=== PATIENT | female | born 1950 | race Caucasian/White ===

== ENCOUNTER → 2018-06-02 | Day surgery (SDC) | payer MEDICARE ==
[2018-05-28 08:52] LABS: BASOPHILS % 0.2 % (0.0-1.0); EOSINOPHILS # (AUTO) 0.1 (0.0-0.4); EOSINOPHILS % 1.3 % (0.0-6.0); HEMATOCRIT 38.8 % (34.2-44.1); HEMOGLOBIN 13.4 g/dL (12.0-16.0); LYMPHOCYTES % 28.5 % (18.0-39.1); MEAN CORPUSCULAR HEMOGLOBIN 28.4 pg (28-32); MEAN CORPUSCULAR HGB CONC 34.5 g/dL (31-35); MEAN CORPUSCULAR VOLUME 82.2 fL (81-99); MONOCYTES # (AUTO) 0.6 (0.2-0.8); MONOCYTES % 5.5 % (4.4-11.3); NEUTROPHILS # (AUTO) 6.7 (2.1-6.9); NEUTROPHILS % 64.2 % (38.7-80.0); PLATELET COUNT 226 x10e3/uL (140-360); RED BLOOD COUNT 4.72 x10e6/uL (3.6-5.1); RED CELL DISTRIBUTION WIDTH 13.5 % (11.7-14.4)
[~2018-06-02] MED LIST: ALPRAZOLAM0.5 MG PO; ARTHROTEC PO; ATENOLOL-CHLOR1 EAC1 PO; FENTANYL CITRATE/PF 100MCG/2 ML INJ ONE; FISH OIL PO; HYDROCODON-ACE1 EAC8 PO; HYOSCYAMINE SULFATE 0.5 MG/ML INJ ONE; LEVAQUIN500 MG PO; LOVASTATIN40 MG PO; METFORMIN HCL500 MG PO; MIDAZOLAM HCL 2 MG/2 ML VIAL ONE; NORCO 5-325 TA1 EACH PO; OMEPRAZOLE40 MG PO; PANTOPRAZOLE SO40 MG PO; PROMETHAZINE HC25 M1 PO; PROPOFOL IV EMULSION 10 MG/ML 50 ML VIAL ONE; SYNTHROID100 MCG PO; VITAMIN B COMP1 EAC1 PO; ZANTAC150 MG PO; [UNRECOGNIZED DRUG - OTHER] PO
[2018-06-02 13:55] VITALS: BP 145/90
[2018-06-02 15:05] LABS: WBC,FECAL (FECAL LACTOFERRIN) NEGATIVE (NEGATIVE)
[2018-06-02 15:13] LABS: C DIFFICILE TOXIN A&B AMP PROB NEGATIVE (NEGATIVE)
--- NOTE | 2018-06-02 15:13 | Operative Report ---
DATE OF PROCEDURE: June 02, 2018 REFERRING PHYSICIAN: Dr. Dalton Shetty PROCEDURES PERFORMED 1. Esophagogastroduodenoscopy with biopsies. 2. Colonoscopy with polypectomy. INDICATIONS FOR EGD: Dyspepsia and early satiety. INDICATIONS FOR COLONOSCOPY: Surveillance colonoscopy, personal history of colon polyps and diarrhea. MEDICATION: Patient was done under MAC. Please see anesthesiologist's note. PROCEDURE: With the patient in the left lateral decubitus position, the flexible fiberoptic Olympus gastroscope was introduced into the esophagus under direct visualization without any difficulty. There was some patchy erythema noted in the distal esophagus. Focal nodularity was noted at the GE junction that was biopsied. The scope was then advanced with ease into the stomach. Mucosa overlying the antrum and the body revealed some patchy erythema and moderate edema, and biopsies were obtained and sent to stain for H. pylori. Pylorus appeared to be of normal contour and shape. It was intubated with ease. The scope was advanced all the way to the 2nd portion of the duodenum. The scope was then withdrawn slowly and biopsies were obtained from the proximal 2nd portion and the duodenal bulb 2 rule out sprue. The scope was then withdrawn back into the stomach and retroflexed. The mucosa overlying the fundus and the cardia appeared to be within normal limits. The scope was then straightened out. The stomach was decompressed. The scope was subsequently withdrawn. Patient tolerated the procedure well. IMPRESSION 1. Distal esophagitis, mild. 2. Focal nodularity, gastroesophageal junction, biopsied. 3. Gastritis, biopsied. Biopsies sent to stain for Helicobacter pylori. 4. Rule out sprue. PLAN: Follow up histology. Increase Protonix to 40 mg 1 p.o. a.c. b.i.d. Patient was then turned around. After adequate lubrication of the anal canal, a flexible fiberoptic Olympus colonoscope was inserted into the rectum with ease and advanced all the way to the cecum. Mucosa overlying the cecum appeared to be within normal limits. One polyp was snared and 1 polyp was hot biopsied from the ascending colon. Two polyps were hot biopsied. One polyp was snared from the transverse colon. Two polyps were snared and 1 polyp was hot biopsied from the descending colon. Diverticular disease was noted to involve the distal descending and the sigmoid colon. Two polyps were snared from the sigmoid colon. One polyp was hot biopsied from the rectum. The scope was then retroflexed into the distal rectum and small internal hemorrhoids were noted, none of which is actively bleeding. The scope was then straightened out. It was subsequently withdrawn after securing an adequate stool specimen that was sent for the appropriate stool studies. Patient tolerated the procedure well. External hemorrhoids were also noted on the way out. IMPRESSION 1. Ascending colon polyps times 2, one snared and one hot biopsied. 2. Transverse colon polyps, times 3, 2 hot biopsied and 1 snared. 3. Descending colon polyp times 3, 2 snared and 1 hot biopsied. 4. Diverticulosis. 5. Sigmoid colon polyps times 2, snared. 6. Rectal polyp times 1, hot biopsied. 7. Internal hemorrhoids, none actively bleeding. PLAN: Follow up histology. Follow up stool studies. Start Bentyl 10 mg 1 p.o. t.i.d. VSL #3 one p.o. daily. Patient might benefit from a followup colonoscopy in 1 year considering the number of polyps and the size of the polyps removed. Job#: [id number] MA cc:DALTON SHETTY M.D.
== END | disposition home or self-care (01) ==
LOC: ENDO 09:14
PROVIDERS: ATTEND Internal Medicine Gastroenterology
DX: Z12.11 Encounter for screening for malignant neoplasm of colon (principal); D12.4 Benign neoplasm of descending colon; D12.3 Benign neoplasm of transverse colon; D12.2 Benign neoplasm of ascending colon; D12.5 Benign neoplasm of sigmoid colon; K62.1 Rectal polyp; K29.70 Gastritis, unspecified, without bleeding; K21.0 Gastro-esophageal reflux disease with esophagitis; K22.70 Barrett's esophagus without dysplasia; K57.30 Diverticulosis of large intestine without perforation or abscess without bleeding; K64.8 Other hemorrhoids; I10 Essential (primary) hypertension; E11.9 Type 2 diabetes mellitus without complications; Z88.1 Allergy status to other antibiotic agents; Z88.3 Allergy status to other anti-infective agents; Z88.0 Allergy status to penicillin; Z88.8 Allergy status to other drugs, medicaments and biological substances; Z01.810 Encounter for preprocedural cardiovascular examination; Z01.812 Encounter for preprocedural laboratory examination; Z79.84 Long term (current) use of oral hypoglycemic drugs; Z68.31 Body mass index [BMI] 31.0-31.9, adult; Z80.0 Family history of malignant neoplasm of digestive organs
CPT/HCPCS: 36415 ×2; 43239; 45384; 45385; 82948; 83630; 83993; 85025; 87045; 87177; 87328; 87493; 88305; 88312; 93005; J1980; J2250; 45378

== ENCOUNTER → 2019-03-23 | Outpatient (CLI) | payer MEDICARE ==
[~2019-03-23] MED LIST changes: -FENTANYL CITRATE/PF 100MCG/2 ML INJ ONE; -HYOSCYAMINE SULFATE 0.5 MG/ML INJ ONE; -MIDAZOLAM HCL 2 MG/2 ML VIAL ONE; -PROPOFOL IV EMULSION 10 MG/ML 50 ML VIAL ONE; +XANAX0.5 MG PO; +[UNRECOGNIZED DRUG - OTHER] PO
--- NOTE | 2019-03-23 12:57 | Diagnostic Imaging Report ---
TECHNIQUE: Magnetic resonance imaging of the RIGHT KNEE was performed WITHOUT injected contrast. HISTORY: Right knee pain COMPARISON: None available. FINDINGS: LIGAMENTS AND TENDONS: ACL: Intact PCL: Intact Collateral ligaments: Intact Iliotibial band: Unremarkable Popliteal tendon: Intact Extensor mechanism: Intact JOINT: Menisci: Medial: Degenerative signal without tear. Lateral: Complex predominantly horizontal tearing involving the body and posterior horn. Articular Cartilage: Medial Compartment: Partial-thickness cartilage loss Lateral Compartment: Partial-thickness cartilage loss with areas of full-thickness erosion and subchondral edema. Patellofemoral Compartment: Partial-thickness cartilage loss with areas of full-thickness erosion at the patellar apex. Joint Fluid: Small joint effusion. BONE: Subchondral edema in the lateral compartment. SOFT TISSUES: Otherwise, unremarkable. IMPRESSION: Lateral meniscus complex horizontal tearing with regions of full-thickness cartilage loss and subchondral edema. Patellofemoral compartment cartilage damage with full-thickness erosion at the patellar apex. Signed by: Dr. Flynn Ramirez M.D. on 03/23/2019 12:54 PM
== END ==
LOC: MRI 09:45
PROVIDERS: ATTEND Specialist
DX: M25.561 Pain in right knee (principal)

== ENCOUNTER → 2019-03-30 | Day surgery (SDC) | payer MEDICARE ==
[2019-03-27 10:23] LABS: BASOPHILS % 0.2 % (0.0-1.0); EOSINOPHILS # (AUTO) 0.2 (0.0-0.4); EOSINOPHILS % 1.8 % (0.0-6.0); HEMATOCRIT 40.4 % (34.2-44.1); HEMOGLOBIN 13.3 g/dL (12.0-16.0); LYMPHOCYTES # (AUTO) 3.3 (1.0-3.2); LYMPHOCYTES % 34.5 % (18.0-39.1); MEAN CORPUSCULAR HEMOGLOBIN 27.2 pg (28-32); MEAN CORPUSCULAR HGB CONC 32.9 g/dL (31-35); MEAN CORPUSCULAR VOLUME 82.6 fL (81-99); MONOCYTES # (AUTO) 0.5 (0.2-0.8); MONOCYTES % 5.5 % (4.4-11.3); NEUTROPHILS # (AUTO) 5.5 (2.1-6.9); NEUTROPHILS % 57.6 % (38.7-80.0); PLATELET COUNT 226 x10e3/uL (140-360); RED BLOOD COUNT 4.89 x10e6/uL (3.6-5.1); RED CELL DISTRIBUTION WIDTH 14.2 % (11.7-14.4)
[2019-03-27 10:47] LABS: ANION GAP 13.7 mmol/L (8-16); BLOOD UREA NITROGEN 12 mg/dL (7-26); BUN/CREATININE RATIO 16 (6-25); CARBON DIOXIDE 31 mmol/L (22-29); CHLORIDE 95 mmol/L (98-107); CREATININE, SERUM 0.77 mg/dL (0.57-1.11); EST GLOMERULAR FILTRATION RATE > 60 ML/MIN (60-); GLUCOSE 134 mg/dL (74-118); POTASSIUM 3.7 mmol/L (3.5-5.1); SODIUM 136 mmol/L (136-145)
--- NOTE | 2019-03-27 10:56 | Diagnostic Imaging Report ---
Chest, PA and lateral. History: Preoperative evaluation. Left knee surgery. Comparison: None available. Discussion: The cardiomediastinal silhouette and pulmonary vasculature are within normal limits. The lungs are clear without evidence of consolidation or effusion. There are no acute osseous abnormalities. The soft tissues are unremarkable. IMPRESSION: No radiographic evidence of acute cardiopulmonary abnormality. Signed by: Krzysztof Quezada MD on 03/27/2019 10:53 AM
[~2019-03-30] MED LIST changes: +CLINDAMYCIN 600MG / 50ML 50 ML IV ONE; +DEXAMETHASONE SOD PHOS INJ 4 MG/ML VIAL ONE; +FENTANYL CITRATE/PF 100MCG/2 ML INJ ONE; +LIDOCAINE HCL 2% JELLY 5 ML TUBE ONE; +MIDAZOLAM HCL 2 MG/2 ML VIAL ONE; +PROMETHAZINE HCL (IM) 25 MG/ML VIAL ONE; +PROPOFOL IV EMULSION 10 MG/ML 20 ML VIAL ONE; +SEVOFLURANE INHAL SOLN 250 ML PEN BTL ONE
--- OUTSIDE RECORDS SUMMARY | 2019-03-30 05:16 | XMS REPORT ---
Author Author [facility] Address Unknown Phone Unavailable Care Team Providers Care Board Filler Name Role Phone KEVIN ROBERTS Unavailable Unavailable Problems This patient has no known problems. Allergies, Adverse Reactions, Alerts This patient has no known allergies or adverse reactions. Medications This patient has no known medications. Results Test Description Test Time Test Comments Text Results Atomic Results Result Comments CHEST 2 VIEWS 2019-03-27 10:52:00 [facility] [address] [address] Patient Name: CARL DILLARD MR #: [id number] : 1950 Age/Sex: 68/F Req #: [id number] [facility] Physician: Ordered by: KEVIN ROBERTS MD Report #: [id number] Location: OR Room/Bed: Procedure: [id number] DX/CHEST 2 VIEWS Exam Date: 03/27/19 Exam Time: 0950 REPORT STATUS: Signed Chest, PA and lateral. History: Preoperative evaluation. Left knee surgery. Comparison: None available. Discussion: The cardiomediastinal silhouette and pulmonary vasculature are within normal limits. The lungs are clear without evidence of consolidation or effusion. There are no acute osseous abnormalities. The soft tissues are unremarkable. IMPRESSION: No radiographic evidence of acute cardiopulmonary abnormality. Signed by: Krzysztof Isabel MD on 03/27/2019 10:53 AM Dictated By: KRZYSZTOF ISABEL MD 1053 Transcribed By: MIGNON on 03/27/191052 COPY TO: KEVIN ROBERTS MD MRI RIGHT KNEE WO 2019-03-23 12:45:00 [address] [place] [address] Patient Name: CARL DILLARD MR #: [id number] : 1950 Age/Sex: 68/F Req #: [id number] Adm Physician: Ordered by: KEVIN ROBERTS MD Report #: [id number] Location: MRI Room/Bed: Procedure: [id number] MRI/MRI RIGHT KNEE WO Exam Date: Exam Time: REPORT STATUS: Signed TECHNIQUE: Magnetic resonance imaging of the RIGHT KNEE was perfor med WITHOUT injected contrast. HISTORY: Right knee pain COMPARISON: None available. FINDINGS: LIGAMENTS AND TENDONS: ACL: Intact PCL: Intact Collateral ligaments: Intact Iliotibial band: Unremarkable Popliteal tendon: Intact Extensor mechanism: Intact JOINT: Menisci: Medial: Degenerative signal without tear. Lateral: Complex predominantly horizontal tearing involving the body and posterior horn. Articular Cartilage: Medial Compartment: Partial-thickness cartilage loss Lateral Compartment: Partial-thickness cartilage loss with areas of full-thickness erosion and subchondral edema. Patellofemoral Compartment: Partial-thickness cartilage loss with areas of full-thickness erosion at the patellar apex. Joint Fluid: Small joint effusion. BONE: Subchondral edema in the lateral compartment. SOFT TISSUES: Otherwise, unremarkable. IMPRESSION: Lateral meniscus complex horizontal tearing with regions of full-thickness cartilage loss and subchondral edema. Patellofemoral compartment cartilage damage with full-thickness erosion at the patellar apex. Signed by: Dr. Natanael Nolasco M.D. on 03/23/2019 12:54 PM Dictated By: NATANAEL NOLASCO MD 1252 Transcribed By: MIGNON on 03/23/19 1253 COPY TO: KEVIN ROBERTS MD
[2019-03-30 08:45] VITALS: BP 128/89
--- NOTE | 2019-03-30 14:03 | Operative Report ---
DATE OF PROCEDURE: 03/30/2019 SURGEON: Patrick Grover MD GRAIN MANAGER: Peter Majano PA-C PREOPERATIVE DIAGNOSIS: Right knee lateral meniscal tear. POSTOPERATIVE DIAGNOSES: Right knee lateral meniscal tear plus medial meniscal tear. PROCEDURE PERFORMED: Right knee arthroscopy, partial medial meniscectomy, partial lateral meniscectomy. 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 She would like to proceed with arthroscopic intervention. The risks and benefits of the procedure have been explained. The intent to improve mechanical symptoms have been explained. The likelihood of persistent arthritic pain has been explained. She states she understands and wishes to proceed. PROCEDURE IN DETAIL: The patient was brought to the operating room and placed under general anesthetic. Her right lower extremity was prepped and draped in a sterile manner. A preoperative time-out was performed. A tourniquet placed on the upper thigh had been inflated to 300 mmHg. Standard arthroscopy portals were established. The knee was insufflated with sterile saline and systematically inspected. There was a moderate amount of synovitis in the suprapatellar pouch. The patellofemoral groove was generally well preserved. The medial compartment was inspected. The articular surface of the medial femoral condyle and medial tibial plateau were well preserved. There was a degenerative tear of the posterior horn of the medial meniscus. This was debrided back to a stable margin using a combination of biting forceps and a mechanical shaver. This did not amount to removing more than 10% or 15% of the meniscus. The cruciate ligaments were inspected. There was both lateral compartment and medial compartment osteophyte formation starting to develop. There was some notch stenosis starting to develop. The lateral compartment was inspected. There was indeed a complex tear of the lateral meniscus. 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 This amounted to about 40% of the weightbearing surface of the lateral compartment. The meniscus was debrided back to a stable margin using a mechanical shaver. It was clear that the next step in this patient's knee would be a knee replacement. The arthroscopic instruments were removed. The portal incisions were closed with nylon stitches. A sterile bandage was applied. She was extubated and transported to the recovery room in stable condition. There was no blood loss and all needle and sponge counts were correct. Patrick Grover MD DR/JOSE MARTIN /[id number]
== END | disposition home or self-care (01) ==
LOC: OR 05:00
PROVIDERS: ATTEND Specialist
DX: S83.271A Complex tear of lateral meniscus, current injury, right knee, initial encounter (principal); S83.241A Other tear of medial meniscus, current injury, right knee, initial encounter; G89.29 Other chronic pain; G43.909 Migraine, unspecified, not intractable, without status migrainosus; E11.9 Type 2 diabetes mellitus without complications; I10 Essential (primary) hypertension; K21.9 Gastro-esophageal reflux disease without esophagitis; F41.9 Anxiety disorder, unspecified; X58.XXXA Exposure to other specified factors, initial encounter; Z88.1 Allergy status to other antibiotic agents; Z88.0 Allergy status to penicillin; Z88.8 Allergy status to other drugs, medicaments and biological substances; Z79.84 Long term (current) use of oral hypoglycemic drugs; Z68.30 Body mass index [BMI] 30.0-30.9, adult; Z87.891 Personal history of nicotine dependence
CPT/HCPCS: 29880; 36415 ×2; 71046; 80048; 82948; 85025; 93005; J1100; J2001; J2250; J2550; J2704; J3010

== ENCOUNTER 2020-09-04 01:02 | Emergency (ER) | payer MEDICARE ==
[~2020-09-04] VITALS: Ht 180.3 cm; Wt 92.1 kg
[~2020-09-04 01:02] MED LIST changes: -CLINDAMYCIN 600MG / 50ML 50 ML IV ONE; -DEXAMETHASONE SOD PHOS INJ 4 MG/ML VIAL ONE; -FENTANYL CITRATE/PF 100MCG/2 ML INJ ONE; -LIDOCAINE HCL 2% JELLY 5 ML TUBE ONE; -MIDAZOLAM HCL 2 MG/2 ML VIAL ONE; -PROMETHAZINE HCL (IM) 25 MG/ML VIAL ONE; -PROPOFOL IV EMULSION 10 MG/ML 20 ML VIAL ONE; -SEVOFLURANE INHAL SOLN 250 ML PEN BTL ONE
[2020-09-04] MEDS ORDERED: METHYLPREDNISOLONE SOD SUCC 125 MG/2ML VIAL IV ONE (01:15)
[2020-09-04 01:43] LABS: BASOPHILS % 0.3 % (0.0-1.0); EOSINOPHILS # (AUTO) 0.2 (0.0-0.4); EOSINOPHILS % 1.1 % (0.0-6.0); LYMPHOCYTES # (AUTO) 4.5 (1.0-3.2); LYMPHOCYTES % 34.2 % (18.0-39.1); MEAN CORPUSCULAR HEMOGLOBIN 27.5 pg (28-32); MEAN CORPUSCULAR HGB CONC 34.1 g/dL (31-35); MEAN CORPUSCULAR VOLUME 80.6 fL (81-99); MONOCYTES # (AUTO) 0.8 (0.2-0.8); NEUTROPHILS # (AUTO) 7.6 (2.1-6.9); NEUTROPHILS % 57.9 % (38.7-80.0); PLATELET COUNT 287 x10e3/uL (140-360); RED BLOOD COUNT 5.09 x10e6/uL (3.6-5.1); RED CELL DISTRIBUTION WIDTH 13.5 % (11.7-14.4)
[2020-09-04 01:56] LABS: ALANINE AMINOTRANSFERASE 23 IU/L (0-55); ALBUMIN 4.3 g/dL (3.5-5.0); ALBUMIN/GLOBULIN RATIO 1.2 (0.8-2.0); ALKALINE PHOSPHATASE 66 IU/L (40-150); ANION GAP 19.8 mmol/L (8-16); BLOOD UREA NITROGEN 12 mg/dL (7-26); BUN/CREATININE RATIO 15 (6-25); CALCIUM 8.6 mg/dL (8.4-10.2); CARBON DIOXIDE 26 mmol/L (22-29); CHLORIDE 89 mmol/L (98-107); CREATINE KINASE 137 IU/L (29-168); CREATININE, SERUM 0.81 mg/dL (0.57-1.11); EST GLOMERULAR FILTRATION RATE > 60 ML/MIN (60-); GLUCOSE 112 mg/dL (74-118); SODIUM 132 mmol/L (136-145)
[2020-09-04 02:02] LABS: POTASSIUM 2.8 mmol/L (3.5-5.1)
[2020-09-04] MEDS ORDERED: POTASSIUM CHLORIDE 20MEQ/15ML UDC PO ONE (02:15)
[2020-09-04] MEDS ORDERED: POTASSIUM CHLORIDE 10MEQ EA ONE (02:17)
[2020-09-04] MEDS ORDERED: KCL 20MEQ/.9 SOD CHL 1,000 ML IV ONE ×2 (02:29→02:30)
[2020-09-04 04:34] LABS: CREATINE KINASE MB 1.8 ng/mL (0-5.0)
[2020-09-05] MEDS ORDERED: REGLAN10 MG PO (03:07)
== END 2020-09-04 04:45 | disposition home or self-care (01) ==
LOC: ER 01:08
DX: T45.0X1A Poisoning by antiallergic and antiemetic drugs, accidental (unintentional), initial encounter (principal); E78.00 Pure hypercholesterolemia, unspecified; R94.31 Abnormal electrocardiogram [ECG] [EKG]; Z85.828 Personal history of other malignant neoplasm of skin
CPT/HCPCS: 36415; 80053; 82550; 82553; 84484; 85025; 93005; 99284; J2930

== ENCOUNTER 2020-09-04 23:40 | Emergency (ER) | payer MEDICARE ==
[~2020-09-04] VITALS: Ht 177.8 cm; Wt 89.4 kg
[2020-09-05] MEDS ORDERED: SODIUM CHLORIDE FLUSH 10 ML SYR IV ONE (00:30)
[2020-09-05] MEDS ORDERED: ALPRAZOLAM 0.5 MG TAB PO ONE (00:30)
[2020-09-05] MEDS ORDERED: SODIUM CHLORIDE 0.9% 1000ML 1,000 ML IV SCH (00:30)
[2020-09-05] MEDS ORDERED: PROMETHAZINE 12.5MG/ NACL 0.9% 12.5 MG/50 ML BAG IV ONE (00:30)
[2020-09-05] MEDS ORDERED: CLONIDINE HCL 0.1 MG TAB PO ONE (00:45)
[2020-09-05] MEDS ORDERED: METOCLOPRAMIDE HCL 10 MG/2ML VIAL ONE (00:54)
[2020-09-05] MEDS ORDERED: SODIUM CHLORIDE 0.9% 1000ML 1,000 ML ONE (00:54)
[2020-09-05] MEDS ORDERED: ALPRAZOLAM 0.25 MG TAB ONE (00:55)
[2020-09-05] MEDS ORDERED: METOCLOPRAMIDE HCL 10 MG/2ML VIAL IV ONE (01:15)
[2020-09-05] MEDS ORDERED: POTASSIUM CHLORIDE 20 MEQ TAB CR PO STA (02:18)
[2020-09-05] MEDS ORDERED: POTASSIUM CHLORIDE 20 MEQ TAB CR PO ONE (02:27)
[2020-09-05] MEDS ORDERED: REGLAN10 MG PO (03:07)
[2020-09-05 03:16] VITALS: BP 160/80
== END 2020-09-05 03:16 | disposition home or self-care (01) ==
LOC: FSED 09-05 00:03
DX: R42 Dizziness and giddiness (principal); E86.0 Dehydration; R11.0 Nausea; E87.6 Hypokalemia; E86.1 Hypovolemia; I10 Essential (primary) hypertension; E11.9 Type 2 diabetes mellitus without complications; E03.9 Hypothyroidism, unspecified; F41.9 Anxiety disorder, unspecified; G57.00 Lesion of sciatic nerve, unspecified lower limb; Z71.6 Tobacco abuse counseling; F17.210 Nicotine dependence, cigarettes, uncomplicated; F13.239 Sedative, hypnotic or anxiolytic dependence with withdrawal, unspecified
CPT/HCPCS: 80048; 80053; 85025; 93005; 96374; 99283; J2550; J2765; J7030 ×2

== ENCOUNTER → 2022-07-19 | Outpatient (CLI) | payer MEDICARE ==
[~2022-07-19] MED LIST changes: +REGLAN10 MG PO
== END ==
LOC: MAMMO 12:34
PROVIDERS: ATTEND Nurse Practitioner Family
DX: N63.20 Unspecified lump in the left breast, unspecified quadrant (principal)

== ENCOUNTER → 2022-08-09 | Outpatient (CLI) | payer MEDICARE ==
[~2022-08-09] MED LIST changes: +LIDOCAINE 1% 10 ML MULTIDOSE VIAL IJ ONE
== END ==
LOC: US 12:04
PROVIDERS: ATTEND Nurse Practitioner Family
DX: N63.20 Unspecified lump in the left breast, unspecified quadrant (principal)
CPT/HCPCS: 19083; 77065; 88305; 88342; A4648; 88304